=== PATIENT | male | born 1990 | race Two or more races ===

== ENCOUNTER 2021-12-13 11:13 | Emergency (ER) | payer OTHER ==
[~2021-12-13] VITALS: Ht 170.2 cm; Wt 73.0 kg
[2021-12-13 11:31] VITALS: BP 126/79
[2021-12-13 12:17] LABS: CLARITY URINE CLEAR (CLEAR); COLOR URINE YELLOW (YELLOW); KETONES URINE NEGATIVE (NEGATIVE); LEUKOCYTE ESTERASE URINE NEGATIVE (NEGATIVE); NITRITE URINE NEGATIVE (NEGATIVE); OCCULT BLOOD URINE NEGATIVE (NEGATIVE); PROTEIN URINE NEGATIVE (NEGATIVE); SPECIFIC GRAVITY URINE 1.006 (1.005-1.030); UROBILINOGEN URINE 0.2 E.U./dL (0.2-1.0)
[2021-12-13] MEDS ORDERED: DOXY100C5 MT (12:54)
[2021-12-13] MEDS ORDERED: CEFTRIAXONE SODIUM 1 G/VIAL IM ONE (13:00)
== END 2021-12-13 13:05 | disposition home or self-care (01) ==
LOC: ER 11:30
DX: R30.0 Dysuria (principal)
CPT/HCPCS: 81003; 99283